=== PATIENT | male | born 1950 | race Caucasian/White ===

== ENCOUNTER → 2016-12-16 | Outpatient (CLI) | payer BC | LOC: BHSO 07:49 | DX: F42.8 Other obsessive-compulsive disorder (principal) | CPT/HCPCS: 90791-AI ==

== ENCOUNTER → 2017-01-13 | Outpatient (CLI) | payer BC, MEDICARE | LOC: BHSO 09:40 | DX: F42.8 Other obsessive-compulsive disorder (principal) ==

== ENCOUNTER → 2017-02-19 | Outpatient (CLI) | payer BC, MEDICARE | LOC: BHSO 09:20 | DX: F42.8 Other obsessive-compulsive disorder (principal) ==

== ENCOUNTER → 2017-03-23 | Outpatient (CLI) | payer BC, MEDICARE | LOC: BHSO 09:35 | DX: F42.8 Other obsessive-compulsive disorder (principal) ==

== ENCOUNTER → 2017-05-19 | Outpatient (CLI) | payer BC, MEDICARE | LOC: BHSO 10:11 | DX: F42.8 Other obsessive-compulsive disorder (principal) ==

== ENCOUNTER → 2017-08-18 | Outpatient (CLI) | payer BC, MEDICARE | LOC: BHSO 10:13 | DX: F42.8 Other obsessive-compulsive disorder (principal) ==

== ENCOUNTER → 2017-11-10 | Outpatient (CLI) | payer BC | LOC: BHSO 09:53 | DX: F41.1 Generalized anxiety disorder (principal) | CPT/HCPCS: G0463 ==

== ENCOUNTER → 2018-01-17 | Outpatient (CLI) | payer BC | LOC: BHSO 10:00 | DX: F42.8 Other obsessive-compulsive disorder (principal) | CPT/HCPCS: G0463 ==